=== PATIENT | female | born 1935 | race Two or more races ===

== ENCOUNTER 2016-11-22 11:24 | Emergency (ER) | payer SELFPAY ==
[~2016-11-22] VITALS: Wt 78.1 kg
[~2016-11-22 11:24] MED LIST: AMLO5TAB4 PO; ASPI81TA3 PO; BACTDS PO; CALC1TAB98 PO; CLIN-73 PO; FURO20TA3 PO; INSU100I13 SC; IPRA4AER IH; METO-429 PO; PRED20 PO; TRAM50TA2 PO
== END 2016-11-22 12:51 | disposition left against medical advice (07) ==
LOC: E/R 11:24
DX: Z53.21 Procedure and treatment not carried out due to patient leaving prior to being seen by health care provider (principal)
CPT/HCPCS: 82962

== ENCOUNTER 2018-03-14 16:28 | Emergency (ER) | END 2018-03-14 16:48 | disposition left against medical advice (07) ==

== ENCOUNTER 2018-09-24 01:00 | Inpatient (IN) | END 2018-09-25 15:49 | disposition home or self-care (01) | DRG 202 ==

== ENCOUNTER 2019-04-13 18:05 | Emergency (ER) | payer MEDICAID ==
[~2019-04-13] VITALS: Ht 154.9 cm; Wt 74.3 kg
[~2019-04-13 18:05] MED LIST changes: +AMOX1TAB10 PO; +ASPI-903 PO; -ASPI81TA3 PO; -BACTDS PO; -CLIN-73 PO; +FAMO20TA18 PO; -FURO20TA3 PO; -INSU100I13 SC; +LANT3I SC; -METO-429 PO; +NOVO3I SC; -PRED20 PO; +PRED20TA PO
[2019-04-13 18:20] VITALS: Ht 154.9 cm; Wt 74.3 kg
[2019-04-13] MEDS ORDERED: ACETAMINOPHEN 500 MG TAB PO STA (18:35)
[2019-04-13] MEDS ORDERED: LIDOCAINE 1% (MDV) 10 ML INJ INJ STA (18:35)
[2019-04-13] MEDS ORDERED: DIPHTH/TET/ACEL PERTUSS (ADULT) 0.5 ML VIAL IM* ONE (19:00)
[2019-04-13] MEDS ORDERED: ACET500C5 PO (19:28)
--- NOTE | 2019-04-13 19:30 | ERD ---
ER Documentation Chief Complaint Chief Complaint left forearm laceration s/p accidentally breaking glass table. HPI 84-year-old female presents with a left arm laceration after excellently breaking a glass table while eating today. Tetanus is not up-to-date. The laceration is on her distal anterior left forearm. She has no restricted range of motion or deficits or weakness. ROS All systems reviewed and are negative except as per history of present illness. Medications Home Meds Active Scripts Acetaminophen* (Tylophen*) 500 Mg Capsule, 1 CAP PO Q6H PRN for PAIN AND OR ELEVATED TEMP, #15 CAP Prov:TONA NAIK MD 04/13/19 Amoxicillin/Potassium Clav (Amox-Clav 875-125 mg Tablet) 875-125 mg Tab, 1 TAB PO BID, #14 TAB Prov:MARILEE CARPENTERAshleigh PaulinoJustine 09/25/18 Insulin Aspart* (Novolog Insulin Pen*) 100 Unit/Ml Soln, 5 UNIT SC WITH MEALS, #4 EA Prov:MARILEE CARPENTERAshleigh Justine 09/25/18 Insulin Glargine* (Lantus*) 100 Unit/Ml Soln, 15 UNIT SC DAILY, #4 VIAL Prov:MARILEE CARPENTERAshleigh Justine 09/25/18 Famotidine* (Famotidine*) 20 Mg Tablet, 20 MG PO DAILY, #30 TAB 2 Refills Prov:MARILEE CARPENTERAshleigh PaulinoJustine 09/25/18 Prednisone (Prednisone) 20 Mg Tab, 10 MG PO DAILY, #10 TAB take 4 pills tomorrow take 3 pills on the next day take 2 pills on the next day take 1 pill on the next day then stop Prov:MARILEE CARPENTERAshleigh PaulinoJustine 09/25/18 Albuterol/Ipratropium* (Combivent Respimat*) 20-100 Mcg/Inh - 4 Gm Aer.w.adap, 1 PUFF IH QID PRN for SHORTNESS OF BREATH, #1 INH 2 Refills Prov:MARILEE CARPENTERAshleigh PaulinoJustine 09/25/18 Tramadol HCl (Tramadol HCl) 50 Mg Tablet, 50 MG PO Q4 PRN for PAIN, #20 TAB Prov:LUMA RASHID 02/11/16 Reported Medications Calcium Carbonate-Vitamin D3 (Calcium + D 600 Tablet) 1 Tab Tablet, 1 TAB PO DAILY, TAB 10/23/14 Amlodipine Besylate* (Norvasc*) 5 Mg Tablet, 5 MG PO DAILY, TAB 10/23/14 Aspirin* (Aspirin* Chew) 81 Mg Tab.chew, 81 MG PO DAILY, TAB.CHEW 10/23/14 Allergies Allergies: Coded Allergies: Penicillins (Verified Allergy, Unknown, 10/25/14) PMhx/Soc History of Surgery: Yes (Cataract sx. right eye) Anesthesia Reaction: No Hx Neurological Disorder: No Hx Respiratory Disorders: Yes (Hx of asthma) Hx Cardiac Disorders: Yes (HTN ) Hx Psychiatric Problems: No Hx Miscellaneous Medical Probl: Yes (High cholesterol ) Hx Alcohol Use: No Hx Substance Use: No Hx Tobacco Use: No FmHx Family History: No diabetes, No coronary disease, No other Physical Exam Vitals Vital Signs Date Temp Pulse Resp B/P (MAP) Pulse Ox O2 O2 Flow FiO2 Time Delivery Rate 04/13/19 97.6 63 16 154/72 98 Room Air 19:45 (99) 04/13/19 97.6 64 20 162/85 93 18:20 (110) Physical Exam Const: No acute distress Head: Atraumatic Eyes: Normal Conjunctiva ENT: Normal External Ears, Nose and Mouth. Neck: Full range of motion. No meningismus. Resp: Clear to auscultation bilaterally Cardio: Regular rate and rhythm, no murmurs Abd: Soft, non tender, non distended. Normal bowel sounds Skin: No petechiae or rashes Back: No midline or flank tenderness Ext: No cyanosis, or edema. Approximately 4 cm laceration on the distal left forearm without evidence of tendon deficits, neurologic deficit, signs of infection, ischemia. Neur: Awake and alert Psych: Normal Mood and Affect Results 24 hrs Current Medications Medications Dose Sig/Yeni Start Time Status Last (Trade) Ordered Route PRN Stop Time Admin Dose Reason Admin Diphtheria/ 0.5 ml ONCE ONCE 04/13/19 DC 04/13/19 Tetanus/Acell IM* 19:00 04/13/19 18:49 Pertussis 19:01 (Adacel) 500 mg ONCE STAT 04/13/19 DC 04/13/19 Acetaminophen PO 18:35 04/13/19 18:48 (Tylenol 18:37 Tab) Lidocaine 10 ml ONCE STAT 04/13/19 DC HCl INJ 18:35 04/13/19 (Lidocaine 18:37 1% (Mdv) 10 ml) Procedures/MDM Tetanus booster given X-ray left wrist 3V Interpreted by me: Scaphoid: Normal Bones: No fracture Joints: No dislocation Foreign body: None. Impression no appreciable radiopaque foreign body or acute abnormality in left wrist x-ray Seizure note-left wrist was irrigated copiously with normal saline. 2 cc of lidocaine was used for local infiltration. Five 4-0 nylon sutures were used to reapproximate the wound. Patient tolerated procedure well and wound was dressed. Patient presents the left arm laceration without signs of ischemia, deficits, infection, additional complications or radiopaque foreign body identified. She will be discharged home with recommendations for 2-day recheck and 7 days suture removal, sooner for redness, fevers, new or worsening symptoms. Departure Diagnosis: Primary Impression: Laceration Condition: Stable Patient Instructions: Laceration, All Additional Instructions: Cheque 2 butler para cheque para infeccion. cheque 7 butler para saca los puntos / grapas. TONA NAIK MD Apr 13, 2019 19:30
[2019-04-13 19:45] VITALS: BP 154/72; PULSE 63; RESP 16
== END 2019-04-13 19:45 | disposition home or self-care (01) ==
LOC: FTE 18:05
DX: S51.812A Laceration without foreign body of left forearm, initial encounter (principal); J45.909 Unspecified asthma, uncomplicated; I10 Essential (primary) hypertension; W25.XXXA Contact with sharp glass, initial encounter; Y92.9 Unspecified place or not applicable; Z23 Encounter for immunization; Z79.4 Long term (current) use of insulin; Z79.82 Long term (current) use of aspirin
CPT/HCPCS: 12002; 73110; 90715; Z7610; 90471